=== PATIENT | female | born 1955 | race Hispanic/Latino ===

== ENCOUNTER → 2018-01-11 | Outpatient (CLI) | payer BC ==
[~2018-01-11] MED LIST: ASPIR 8181 MG PO; KEFLEX500 MG PO; LEVOTHYROXINE88 MCG PO; LOPRESSOR25 MG PO; PREMPRO 0.45-11 EACH; REMERON15 MG
== END ==
LOC: RAD 15:48
PROVIDERS: ATTEND Family Medicine
DX: R05 Cough (principal); R06.00 Dyspnea, unspecified; R53.83 Other fatigue
CPT/HCPCS: 93306

== ENCOUNTER → 2018-03-26 | Outpatient (CLI) | payer BC | LOC: MAMMO 08:48 | PROVIDERS: ATTEND Obstetrics & Gynecology | DX: Z12.31 Encounter for screening mammogram for malignant neoplasm of breast (principal) | CPT/HCPCS: 77067 ==

== ENCOUNTER 2018-04-12 17:50 | Observation (INO) | payer BC ==
[~2018-04-12] VITALS: Ht 167.6 cm; Wt 84.4 kg
--- OUTSIDE RECORDS SUMMARY | 2018-04-12 17:51 | XMS REPORT ---
Author Author [facility] Address Unknown Phone Unavailable Care Team Providers Care Hand Laminator Name Role Phone ALEX FELIX Unavailable Unavailable Problems This patient has no known problems. Allergies, Adverse Reactions, Alerts This patient has no known allergies or adverse reactions. Medications This patient has no known medications. Results Test Description Test Time Test Comments Text Results Atomic Results Result Comments MAMMOGRAPHY DIGITAL SCR BILAT [place] [address] Patient Name: MESSI CLARKE MR #: [id number] : 1955 Age/Sex: 62/F Req #: [id number] Adm Physician: Ordered by: ALEX FELIX MD Report #: [id number] Location: MAMMO Room/Bed: Procedure: [id number] MG/MAMMOGRAPHY DIGITAL SCR BILAT Exam Date: 03/26/18 Exam Time: 0900 REPORT STATUS: Signed # [id number] - [id number] #BILATERAL DIGITAL SCREENING MAMMOGRAM WITH CAD: 03/26 CLINICAL: Routine screening. Comparison is made to exams dated: 04/27/2017 mammogram, 04/03/2017 mammogram, 04/03/2016 mammogram and 04/02/2015 mammogram - [facility]. Current study contains 4 films. The tissue of both breasts is heterogeneously dense. This may lower the sensitivity of mammography. Current study was also evaluated with a Computer Aided Detection (CAD) system. There are benign scattered calcifications in both breasts. The previously identified cyst in the upper outer aspect of the left breast is not visualized on today's exam. No significant masses, calcifications, or other findings are seen in either breast. There has been no significant interval change. IMPRESSION: BENIGN There is no mammographic evidence of malignancy. A 1 year screening mammogram is recommended. The patient will be notified by letter of the results. Neeraj Bob Jr., D.O. cw/:03/30/2018 08:41:49 [employer] Manager: Maggy POLLARD(R)(M), [facility] letter sent: Compared to Prior B9 Mammogram BI-RADS: 2 Benign Dictated By: NEERAJ BOB DO 0 COPY TO: ALEX FELIX MD
[2018-04-12 17:58] VITALS: BP 164/71
[2018-04-12 18:35] VITALS: BP 164/71
[2018-04-12 18:44] VITALS: BP 164/71
[2018-04-12] MEDS: METOPROLOL TARTRATE 25 MG TAB PO SCH (19:00)
[2018-04-12] MEDS: ASPIRIN 325 MG TAB PO SCH (19:00)
[2018-04-12] MEDS: ENOXAPARIN SOD INJ 40 MG/0.4 ML SYR SC SCH (19:53)
[2018-04-12 20:00] VITALS: BP 152/62
[2018-04-13] VITALS (7 sets, daily range): BP systolic 107–149; BP diastolic 52–66
[2018-04-13] MEDS ORDERED: REMERON15 MG (04:27)
[2018-04-13 04:48] LABS: CLARITY,URINE CLEAR (CLEAR); COLOR,URINE YELLOW (YELLOW); LEUKOCYTE ESTERASE ,URINE NEGATIVE (NEGATIVE); NITRITE,URINE NEGATIVE (NEGATIVE); PROTEIN,URINE DIPSTICK NEGATIVE (NEGATIVE)
[2018-04-13 04:49] LABS: BACTERIA,URINE RARE /HPF; BILIRUBIN,URINE NEGATIVE (NEGATIVE); EPITHELIAL CELLS,URINE FEW /LPF; KETONES,URINE NEGATIVE (NEGATIVE); RBC,URINE 0-5 /HPF (0-5); URINE UROBILINOGEN 0.2 mg/dL (0.2 - 1)
[2018-04-13] MEDS ORDERED: LEVOTHYROXINE88 MCG PO (05:38)
[2018-04-13] MEDS ORDERED: PREMPRO 0.45-11 EACH (05:38)
[2018-04-13] MEDS ORDERED: SODIUM CHLORIDE 0.9% 250ML 250 ML ONE (06:08)
[2018-04-13] MEDS ORDERED: KEFLEX500 MG PO (06:08)
[2018-04-13] MEDS ORDERED: LOPRESSOR25 MG PO (06:08)
[2018-04-13] MEDS ORDERED: ASPIR 8181 MG PO (06:08)
[2018-04-13] MEDS ORDERED: CEFTRIAXONE SOD 1 GM VIAL IV SCH (06:30)
[2018-04-13] MEDS ORDERED: LORAZEPAM INJ 2 MG/ML VIAL IV PRN ×3 (06:30→09:00)
[2018-04-13 06:37] LABS: BASOPHILS % 0.4 % (0.0-1.0); EOSINOPHILS # (AUTO) 0.1 (0.0-0.4); EOSINOPHILS % 1.3 % (0.0-6.0); HEMATOCRIT 41.7 % (34.2-44.1); HEMOGLOBIN 14.2 g/dL (12.0-16.0); LYMPHOCYTES # (AUTO) 2.6 (1.0-3.2); MEAN CORPUSCULAR HGB CONC 34.1 g/dL (31-35); MEAN CORPUSCULAR VOLUME 93.9 fL (81-99); MONOCYTES # (AUTO) 0.6 (0.2-0.8); MONOCYTES % 7.6 % (4.4-11.3); NEUTROPHILS # (AUTO) 4.5 (2.1-6.9); NEUTROPHILS % 57.4 % (38.7-80.0); PLATELET COUNT 229 x10e3/uL (140-360); RED BLOOD COUNT 4.44 x10e6/uL (3.6-5.1); RED CELL DISTRIBUTION WIDTH 12.6 % (11.7-14.4)
[2018-04-13 06:58] LABS: ANION GAP 12.9 mmol/L (8-16); BLOOD UREA NITROGEN 9 mg/dL (7-26); BUN/CREATININE RATIO 13 (6-25); CALCIUM 9.1 mg/dL (8.4-10.2); CARBON DIOXIDE 25 mmol/L (22-29); CHLORIDE 108 mmol/L (98-107); CREATININE, SERUM 0.71 mg/dL (0.57-1.11); EST GLOMERULAR FILTRATION RATE > 60 ML/MIN (60-); GLUCOSE 130 mg/dL (74-118); POTASSIUM 3.9 mmol/L (3.5-5.1); SODIUM 142 mmol/L (136-145)
[2018-04-13] MEDS: FAMOTIDINE 20 MG TAB PO SCH ×2 (07:30→17:46)
[2018-04-13 07:32] LABS: CHOL/HDL RATIO 3.8 (3.0-3.6)
[2018-04-13] MEDS: ASPIRIN 325 MG TAB PO SCH (09:00)
[2018-04-13] MEDS: METOPROLOL TARTRATE 25 MG TAB PO SCH ×2 (09:00→17:00)
--- NOTE | 2018-04-13 10:47 | Progress Note ---
DATE: April 13, 2018 TIME: 6:27 a.m. OVERNIGHT: No events. Feeling better. REVIEW OF SYSTEMS: Denies any dizziness. PHYSICAL EXAMINATION VITAL SIGNS: Reviewed. Blood pressure 145/65. GENERAL: A tired-appearing woman resting in bed. HEENT: Anicteric. CARDIOVASCULAR: Normal S1 and S2. LUNGS: Moderate breath sounds. ABDOMEN: Soft, nontender and nondistended. EXTREMITIES: No edema or calf tenderness. NEUROLOGICAL: Alert and oriented times 3. Moving all extremities. SKIN: Dry. PSYCHIATRIC: Normal affect. LABS: Reviewed. MEDICATIONS: Reviewed. ASSESSMENT: This is a 62-year-old woman with: 1. Hypertensive encephalopathy. 2. Acute metabolic encephalopathy. 3. Obesity. 4. Transient ischemic attack. 5. Urinary tract infection. 6. Prediabetes. PLAN 1. Notified about borderline diabetes status. 2. Follow up MRI of the brain and MRI of the head and neck. If negative, can be discharged home. 3. The patient has a urinary tract infection. Started on ceftriaxone and discharge home with Keflex for 5 days. 4. Hemoglobin A1c was 6.1. 5. Follow up labs this morning. 6. Discharge planning. Physical therapy has already been ordered. We are awaiting MRI imaging. Job#: [id number] KRISS
[2018-04-13] MEDS ORDERED: ZIPRASIDONE 20 MG VIAL IM ONE (10:50)
[2018-04-13] MEDS ORDERED: LORAZEPAM INJ 2 MG/ML VIAL IV ONE (11:00)
--- NOTE | 2018-04-13 11:56 | History and Physical ---
PRIMARY CARE PHYSICIAN: Dr. Barber. CHIEF COMPLAINT: Speech changes. HISTORY OF PRESENT ILLNESS: A 62-year-old woman with a history of hypothyroidism, now waking up in the morning with some difficulty with speech around 8 a.m. She did not have any facial droop or focal weakness. No headache or dizziness or blurred vision. The patient went to nearby ER. CT scan was negative of the brain. Her symptoms have almost completely resolved. Her states that she is almost back to baseline. The patient has no complaints at this time. PAST MEDICAL HISTORY: Hypothyroidism. PAST SURGICAL HISTORY: None. ALLERGIES: PER ELECTRONIC MEDICAL RECORD. FAMILY HISTORY/SOCIAL HISTORY: Patient is . She has 5 children. No alcohol, illicits or cigarettes. MEDICATIONS: Per electronic medical records. REVIEW OF SYSTEMS: Denies any dizziness or chest pain. PHYSICAL EXAMINATION VITAL SIGNS: Reviewed. GENERAL: A tired-appearing woman, resting in bed. HEENT: Anicteric. Pupils reactive to light. No oral lesions. CARDIOVASCULAR: Normal S1 and S2. Regular rhythm and rate. LUNGS: Bilateral equal breath sounds. ABDOMEN: Soft, nontender, nondistended. EXTREMITIES: No edema or calf tenderness. NEUROLOGICAL: Alert and oriented times 3. Moves all extremities. SKIN: Dry. PSYCHIATRIC: Normal affect. LABS: Reviewed. MEDICATIONS: Reviewed. ASSESSMENT: A 62-year-old woman with 1. Hypertensive encephalopathy. 2. Acute metabolic encephalopathy. 3. Transient ischemic attack. 4. Obesity. PLAN 1. Will obtain an MRI of the brain and MRA of the head and neck to evaluate for any ischemic disease. 2. Will use sedative, Ativan, prior to the procedure. 3. Obesity screen for diabetes and obtain lipid panel. 4. Will control her blood pressure with beta miky b.i.d. 5. Will add aspirin 325 daily. 6. Will rule out urinary tract infection with urinalysis. 7. Prophylaxis: Will use Lovenox and Pepcid. 8. Disposition: Will follow up labs. Will obtain MRA of the head and neck and determine if any further workup is needed at that time. Job#: [id number]
[2018-04-13] MEDS ORDERED: ONDANSETRON HCL 4 MG ORAL DISINTEGRATING TAB PO PRN (16:00)
[2018-04-13] MEDS ORDERED: ENOXAPARIN SOD INJ 40 MG/0.4 ML SYR SC SCH (17:00)
[2018-04-13] MEDS: ENOXAPARIN SOD INJ 40 MG/0.4 ML SYR SC SCH (17:46)
--- NOTE | 2018-04-14 15:58 | Consultation ---
DATE OF CONSULTATION: April 13, 2018 HISTORY OF PRESENT ILLNESS: Ms. Clarke is a 62-year-old right-hand dominant woman with past medical history significant for thyroid disease and anxiety disorder, who presented to the Emergency Center at [facility] on April 12, 2018, with dysarthria. Beginning shortly after 8:30 a.m. on April 11, 2018, the patient experienced the sudden onset of dysarthria. Associated with the dysarthria, Ms. Clarke reports anxiety/nervousness. The patient does not report a visual field cut or other disturbance, aphasia, facial droop, hemiparesis, hemihypesthesia, tingling, impairment of gait or balance, dizziness, or confusion. Ms. Clarke did not have headache associated with the dysarthria. She has not experienced similar symptoms previously. The dysarthria persisted for approximately 24 hours then spontaneously resolved. When questioned about the source of her anxiety/nervousness, the patient reports she has been under increased psychosocial stress for the past several days. She is caring for her granddaughter while her [id number] is out of town. The grand-daughter is "very attached" to her mother and is having a difficult time while her mother is out of town. Upon admission to the Emergency Center at [facility], the patient was afebrile with a blood pressure of 164/71 mmHg and a pulse of 80 beats per minute. Documentation of the patient's general physical and neurological examinations is unavailable for review. No diagnostic studies were performed in the Emergency Center. Ms. Clarke was admitted to [facility] under observation status for further evaluation of her symptoms. REVIEW OF SYSTEMS: Dysarthria, anxiety. Otherwise, the 12-point review of systems is negative. PAST MEDICAL HISTORY: Thyroid disease, anxiety disorder. PAST SURGICAL HISTORY: None. PAST HOSPITALIZATIONS: Childbirth times 5. FAMILY HISTORY: The patient's paternal and maternal grandparents are . Their medical histories are unknown. The patient's father is from throat cancer. Ms. Clarke's mother is , cause unknown. The patient has 6 brothers and sisters. All are . Their medical histories are unknown. Ms. Clarke has 5 children. All are alive and healthy. SOCIAL HISTORY: The patient is . She completed some high school. 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 The patient does not report current or prior tobacco, alcohol, or recreational drug use. HOME MEDICATIONS: 1. Levothyroxine 100 mcg by mouth daily. 2. Estrogen/progesterone supplements 0.45 per 1.5 mg by mouth daily. ALLERGIES: NO KNOWN DRUG ALLERGIES. MS. CLARKE REPORTS SOME FOOD ALLERGIES, BUT CANNOT RECALL THEM AT THIS TIME. NO KNOWN ALLERGIES TO LATEX. NO KNOWN ALLERGIES TO IODINE OR OTHER CONTRAST MATERIALS. PHYSICAL EXAMINATION: VITAL SIGNS: Height 66 inches, weight 186 pounds, BMI is 30.0 kg/m sq. Blood pressure 107/52 mmHg, pulse 70 beats per minute, respiratory rate 18 breaths per minute, oxygen saturation 100% on room air. GENERAL: The patient is drowsy, but arouses to verbal stimuli. No acute distress. Overweight. HEENT: Normocephalic, atraumatic. Pupils are equal, round, and reactive to light. Moist mucous membranes. NECK: Supple. No appreciable thyromegaly. No appreciable carotid bruits. CARDIOVASCULAR: S1, S2, regular rate and rhythm. No murmurs, rubs or gallops. RESPIRATORY: Clear to auscultation bilaterally. No wheezes, rhonchi or rales. EXTREMITIES: The skin is warm and dry. No clubbing, cyanosis or edema. The posterior tibial and dorsalis pedis pulses are 2+ and symmetric. SKIN: No rashes or lesions. NEUROLOGIC: MEMORY/ATTENTION: The patient is drowsy, but arouses to verbal stimuli. Oriented to person, place, time and situation. CRANIAL NERVES: Cranial nerve I-not tested. Cranial nerve II, III, IV, and -pupils are equal and round, react briskly to light (from 4 mm to 2 mm), extraocular movements intact, no nystagmus. Cranial nerve V-sensation to light touch and pinprick is intact in the bilateral V1 through V3 distributions. Strength of the temporalis and masseter muscles is within normal limits. Cranial nerve VII-the face is symmetric as are all facial movements. Strength is within normal limits. Cranial nerve VIII-hearing is intact to finger rub bilaterally. Cranial nerve IX, X-the soft palate elevates equally and symmetrically. Cranial nerve XI-normal strength of the bilateral sternocleidomastoid and trapezius muscles. Cranial nerves XII-the tongue protrudes in midline and moves symmetrically from side to side. STRENGTH: Bulk is normal. Strength is 5/5 in the bilateral deltoids, biceps, triceps, wrist flexors and extensors, finger flexors and extensors, intrinsic hand muscles, hip flexors, knee flexors and extensors, ankle dorsiflexion and plantar flexion, and intrinsic foot muscles. Tone is normal. DTRs: Deep tendon reflexes are 2+ and symmetric at the triceps, biceps, brachioradialis, patellas, and Achilles. Plantar responses are flexor bilaterally. Absent clonus. SENSATION: Sensation is intact to light touch and pinprick in both arms and both legs. CEREBELLAR: Rqnojf-waab-tytykw and heel-copeland movements are intact without dysmetria or other impairment. GAIT: Deferred. SPEECH: Spontaneous speech is normal without appreciable dysarthria or aphasia. Repetition is intact. INVOLUNTARY MOVEMENTS: None. PRONATOR DRIFT: None. LABORATORY DATA: Sodium 142, potassium 3.9, chloride 108, carbon dioxide 25, anion gap 12.9, BUN 9, creatinine 0.71, estimated GFR greater than 60, BUN to creatinine ratio 13, glucose 130, calcium 9.1. Hemoglobin A1c 6.1. TSH 0.573. Total cholesterol 211, triglycerides 183, LDL cholesterol 118, HDL cholesterol 56. The CBC with differential and platelets reveals a white blood cell count of 7.89 with a normal differential. The hemoglobin and hematocrit are 14.2 and 41.7, respectively. The platelet count is 229,000. Urinalysis is significant for 6 to 10 white blood cells. ASSESSMENT AND PLAN: Ms. Clarke is a 62-year-old right-hand dominant woman without diagnosed vascular risk factors, admitted to [facility] on April 12, 2018, with dysarthria which spontaneously resolved after approximately 24 hours. Ms. Clarke's neurological examination is nonfocal. Her laboratory data has been reviewed and is documented above. There is low suspicion for a transient ischemic attack/stroke. The patient does not have vascular risk factors for either a heart attack or stroke. Specifically, she does not have known diagnosis of high blood pressure, high cholesterol, diabetes mellitus, coronary artery disease, obstructive sleep apnea, or tobacco use. There is no significant family history of heart disease or stroke. In addition, there are no other symptoms associated with dysarthria which would be atypical for a transient ischemic attack/stroke. Ms. Clarke does report increased psychosocial stress over the past several days. She reported anxiety/nervousness associated with the dysarthria. Therefore, it is my opinion her transient dysarthria was more likely to be a reaction to increased psychosocial stress. There are no further recommendations from the neurology service at this time. The patient may be discharged to home. Thank you for this consultation. TIME SPENT: 50 minutes. Job#: [id number] DOMINIC MEJIAS
== END 2018-04-13 22:39 | disposition home or self-care (01) ==
LOC: IMCU 17:50
PROVIDERS: ADMIT Internal Medicine; ATTEND Internal Medicine
DX: I67.4 Hypertensive encephalopathy (principal); G93.41 Metabolic encephalopathy; G45.9 Transient cerebral ischemic attack, unspecified; E66.9 Obesity, unspecified; F41.9 Anxiety disorder, unspecified; R47.1 Dysarthria and anarthria; R73.03 Prediabetes; E03.9 Hypothyroidism, unspecified
CPT/HCPCS: 36415; 80048; 80061; 81001; 85025; 97161; G0378 ×2; G8978; G8979; J0696; J1650; J2060; J3486; J7050

== ENCOUNTER → 2019-03-28 | Outpatient (CLI) | payer MEDICARE | LOC: MAMMO 09:38 | PROVIDERS: ATTEND Obstetrics & Gynecology | DX: Z12.31 Encounter for screening mammogram for malignant neoplasm of breast (principal) | CPT/HCPCS: 77067 ==

== ENCOUNTER → 2020-04-05 | Outpatient (CLI) | payer MEDICARE | LOC: MAMMO 10:06 | PROVIDERS: ATTEND Obstetrics & Gynecology | DX: Z12.31 Encounter for screening mammogram for malignant neoplasm of breast (principal) | CPT/HCPCS: 77067 ==

== ENCOUNTER → 2021-04-08 | Outpatient (CLI) | payer MEDICARE | LOC: MAMMO 08:37 | PROVIDERS: ATTEND Obstetrics & Gynecology | DX: Z12.31 Encounter for screening mammogram for malignant neoplasm of breast (principal); Z13.820 Encounter for screening for osteoporosis | CPT/HCPCS: 77067; 77080 ==

== ENCOUNTER → 2022-04-09 | Outpatient (CLI) | payer MEDICARE | LOC: MAMMO 08:57 | PROVIDERS: ATTEND Family Medicine | DX: Z12.31 Encounter for screening mammogram for malignant neoplasm of breast (principal) | CPT/HCPCS: 77067 ==

== ENCOUNTER → 2023-04-14 | Outpatient (CLI) | payer MEDICARE | LOC: MAMMO 12:12 | PROVIDERS: ATTEND Obstetrics & Gynecology | DX: Z12.31 Encounter for screening mammogram for malignant neoplasm of breast (principal) | CPT/HCPCS: 77067 ==

== ENCOUNTER 2024-05-02 14:05 | Outpatient (RCR) | payer MEDICARE | END 2024-05-15 | LOC: PT 14:05 | PROVIDERS: ATTEND Specialist | DX: M75.81 Other shoulder lesions, right shoulder (principal); M62.81 Muscle weakness (generalized); M25.511 Pain in right shoulder ==